=== PATIENT | female | born 1970 | race Caucasian/White ===

== ENCOUNTER 2018-10-25 21:41 | Emergency (ER) | payer OTHER | END 2018-10-25 23:03 | disposition left against medical advice (07) | LOC: ER 21:41 | DX: T33.99XA Superficial frostbite of other sites, initial encounter (principal); Z53.21 Procedure and treatment not carried out due to patient leaving prior to being seen by health care provider; X31.XXXA Exposure to excessive natural cold, initial encounter; Y93.89 Activity, other specified; Y92.89 Other specified places as the place of occurrence of the external cause; Y99.8 Other external cause status ==